=== PATIENT | female | born 2000 | race Two or more races ===

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

== ENCOUNTER 2023-01-02 11:10 | Emergency (ER) | payer MEDICAID ==
[~2023-01-02] VITALS: Ht 162.6 cm; Wt 111.4 kg
[2023-01-02 12:32] VITALS: BP 137/68; PULSE 81; RESP 16; TEMP 97.8; O2SAT 98
[2023-01-02] MEDS ORDERED: TOB03OS OP (12:56)
== END 2023-01-02 13:01 | disposition home or self-care (01) ==
LOC: ER 11:10
DX: H10.33 Unspecified acute conjunctivitis, bilateral (principal); F41.9 Anxiety disorder, unspecified; J45.909 Unspecified asthma, uncomplicated; Z79.899 Other long term (current) drug therapy